=== PATIENT | female | born 1970 | race African-American/Black ===

== ENCOUNTER 2017-12-02 14:56 | Emergency (ER) | payer OTHER ==
[~2017-12-02] VITALS: Ht 172.7 cm; Wt 81.7 kg
[2017-12-02] MEDS ORDERED: MOBIC7.5 MG PO (16:26)
[2017-12-02] MEDS ORDERED: NORFLEX100 MG PO (16:26)
[2017-12-02 16:49] VITALS: BP 112/78
== END 2017-12-02 16:50 | disposition home or self-care (01) ==
LOC: ER 14:56
DX: S39.012A Strain of muscle, fascia and tendon of lower back, initial encounter (principal); V49.09XA Driver injured in collision with other motor vehicles in nontraffic accident, initial encounter; Y93.89 Activity, other specified; Y92.410 Unspecified street and highway as the place of occurrence of the external cause; Y99.8 Other external cause status